=== PATIENT | male | born 1955 | race Caucasian/White ===

== ENCOUNTER 2019-05-09 13:52 | Emergency (ER) | payer BC ==
[2019-05-09 14:51] LABS: #Basophils 0.1 thou/uL (0.0-0.2); #Eosinphils 0.1 thou/uL (0.0-0.7); #Lymphocytes 2.2 thou/uL (1.20-3.40); #Monocytes 0.4 thou/uL (0.11-0.59); #Neutrophils 5.3 thou/uL (1.40-6.50); %Basophils 1.1 % (0.0-1.0); %Eosinophils 0.9 % (0.0-10.0); %Lymphocytes 27.3 % (21.0-51.0); %Monocytes 4.7 % (0.0-10.0); Hemoglobin 13.7 g/dL (14.0-18.0); Mean Corpuscular HGB CONC 33.9 g/dL (32.0-36.0); Mean Corpuscular Hemoglobin 32.1 pg (27.0-31.0); Mean Corpuscular Volume 94.5 fL (78.0-98.0); Mean Platelet Volume 7.2 fL (7.4-10.4); Platelet Count 210 thou/uL (130-400); RBC Distribution Width 11.9 % (11.5-14.5); Red Blood Cell (RBC) Count 4.27 mill/uL (4.70-6.10)
[2019-05-09 15:14] LABS: Anion Gap 11 mmol/L (10-20); BUN (Urea Nitrogen) 17 mg/dL (8.4-25.7); Calc. Creatinine Clearance 0 mL/min (70-130); Calcium 9.8 mg/dL (7.8-10.44); Carbon Dioxide 27 mmol/L (23-31); Chloride 104 mmol/L (98-107); Estimated GFR-MDRD 55; Glucose 81 mg/dL (80-115); Potassium 4.1 mmol/L (3.5-5.1); Sodium 138 mmol/L (136-145)
== END 2019-05-09 15:50 | disposition home or self-care (01) ==
LOC: ERS 13:52
DX: G47.9 Sleep disorder, unspecified (principal); T40.7X5A Adverse effect of cannabis (derivatives), initial encounter; E78.5 Hyperlipidemia, unspecified; I10 Essential (primary) hypertension; Z79.899 Other long term (current) drug therapy
CPT/HCPCS: 36415; 80048; 84484; 85025; 93005

== ENCOUNTER 2019-10-01 06:23 | Outpatient (CLI) | payer BC ==
[2019-10-01 11:04] LABS: PTT 31.2 SEC (22.9-36.1); Prothrombin Time 13.1 SEC (12.0-14.7)
[2019-10-01 11:10] LABS: Anion Gap 12 mmol/L (10-20); BUN (Urea Nitrogen) 17 mg/dL (8.4-25.7); Calc. Creatinine Clearance 0 mL/min (70-130); Carbon Dioxide 27 mmol/L (23-31); Chloride 104 mmol/L (98-107); Estimated GFR-MDRD 63; Glucose 78 mg/dL (80-115); Potassium 4.5 mmol/L (3.5-5.1); Sodium 138 mmol/L (136-145)
--- NOTE | 2019-10-01 17:32 | EKG ---
Test Reason : Blood Pressure : / mmHG Vent. Rate : 057 BPM Atrial Rate : 057 BPM P-R Int : 184 ms QRS Dur : 094 ms QT Int : 402 ms P-R-T Axes : 047 -01 052 degrees QTc Int : 391 ms Sinus bradycardia Early repolarization variant When compared with ECG of 09-MAY-2019 14:36, (Unconfirmed) QRS axis Shifted right Borderline criteria for Inferior infarct are now Present Confirmed by DR. Thomas GONZALEZ ([id number]) on 10/01/2019 5:31:33 PM Referred By: KHADAR Confirmed By:DR. Thomas GONZALEZ
== END 2019-10-01 06:24 | disposition home or self-care (01) ==
LOC: LABBT 06:23
PROVIDERS: ATTEND Urology
DX: Z01.818 Encounter for other preprocedural examination (principal); N40.1 Benign prostatic hyperplasia with lower urinary tract symptoms
CPT/HCPCS: 80048; 85610; 85730; 87086; 93005; 93010

== ENCOUNTER 2019-10-08 07:25 | Observation (INO) | payer BC ==
[2019-10-08 08:24] LABS: #Basophils 0.1 thou/uL (0.0-0.2); #Eosinphils 0.1 thou/uL (0.0-0.7); #Lymphocytes 2.4 thou/uL (1.20-3.40); #Monocytes 0.4 thou/uL (0.11-0.59); #Neutrophils 3.5 thou/uL (1.40-6.50); %Basophils 0.9 % (0.0-1.0); %Eosinophils 1.1 % (0.0-10.0); %Lymphocytes 37.5 % (21.0-51.0); %Monocytes 5.9 % (0.0-10.0); %Neutrophils 54.6 % (42.0-75.0); Hemoglobin 15.2 g/dL (14.0-18.0); Mean Corpuscular HGB CONC 34.3 g/dL (32.0-36.0); Mean Corpuscular Hemoglobin 32.2 pg (27.0-31.0); Mean Platelet Volume 7.6 fL (7.4-10.4); Platelet Count 200 thou/uL (130-400); RBC Distribution Width 11.6 % (11.5-14.5); Red Blood Cell (RBC) Count 4.72 mill/uL (4.70-6.10); White Blood Cell (WBC) Count 6.4 thou/uL (4.8-10.8)
[2019-10-08] MEDS ORDERED: Levofloxacin 500 mg/D5W 100 ml Premix Bag ONE (08:45)
[2019-10-08 09:16] LABS: Bacteria/HPF None Seen HPF (None Seen); Bilirubin Negative (Negative); Blood, Urine Negative (Negative); Clarity Clear (Clear); Glucose, Urine (Dipstick) Normal (Negative); Leukocyte Negative Leu/uL (Negative); Nitrite Negative (Negative); Protein, Urine (Dipstick) Negative (Neg-Trace); RBC/HPF 0-3 HPF (0-3); Squamous Epithelial None Seen HPF (0-3); Urobilinogen Normal mg/dL (Less than 2); WBC/HPF 0-3 HPF (0-3)
[2019-10-08] MEDS ORDERED: Fentanyl 100 MCG/2 ML VIAL ONE ×2 (10:20→12:14)
[2019-10-08] MEDS ORDERED: Iothalamate Meglumine 60% 50 ML VIAL FS ONE (10:21)
[2019-10-08] MEDS ORDERED: B & O ONE (10:21)
[2019-10-08] MEDS ORDERED: Promethazine HCl 25 MG/ML VIAL IM PRN (11:27)
[2019-10-08] MEDS ORDERED: Promethazine HCl 25 MG/ML VIAL SLOW IVP PRN (11:27)
[2019-10-08] MEDS ORDERED: Ondansetron HCl/PF 4 MG/2 ML Vial IVP PRN (11:27)
[2019-10-08] MEDS ORDERED: Phenazopyridine HCl 97.5 MG TABLET PO PRN (11:29)
[2019-10-08] MEDS ORDERED: diphenhydrAMINE 25 MG CAP PO PRN (11:29)
[2019-10-08] MEDS ORDERED: hydrALAZINE 20 MG/ML VIAL SLOW IVP PRN (11:29)
[2019-10-08] MEDS ORDERED: Hyoscyamine Sulfate SL 0.125 mg Tablet SL PRN (11:29)
[2019-10-08] MEDS ORDERED: Morphine 2 MG/ML SYRINGE SLOW IVP PRN (11:29)
[2019-10-08] MEDS ORDERED: Acetaminophen 500 MG TAB PO PRN (11:29)
[2019-10-08] MEDS ORDERED: Bisacodyl 10 MG SUPP PR PRN (11:29)
[2019-10-08] MEDS ORDERED: Mag-Al 1200 mg/1200 mg/30 ML UDCUP PO PRN (11:29)
[2019-10-08] MEDS ORDERED: traMADol HCl 50 MG TAB PO PRN (11:35)
[2019-10-08] MEDS ORDERED: ePHEDrine/0.9% NaCl/PF SYRINGE 50 mg/10 ml ONE (14:30)
[2019-10-08] MEDS ORDERED: Dexamethasone 20 MG/5 ML VIAL ONE (14:30)
[2019-10-08] MEDS ORDERED: Ondansetron PF 4 MG/2 ML Vial ONE (14:30)
[2019-10-08] MEDS ORDERED: Lidocaine 1% PF 5 ML VIAL ONE (14:30)
[2019-10-08] MEDS ORDERED: PROPOFOL 200 MG/20 ML VIAL ONE (14:30)
[2019-10-08] MEDS: Ondansetron PF 4 MG/2 ML Vial IVP PRN (14:34)
--- NOTE | 2019-10-08 15:32 | OP ---
DATE OF PROCEDURE: 10/08/2019 SERVICES: Urology. PREOPERATIVE DIAGNOSIS: BPH. POSTOPERATIVE DIAGNOSIS: BPH. PROCEDURE PERFORMED: Transurethral resection of the prostate. INDICATION FOR PROCEDURE: Mr. Mccracken is a 64-year-old white male with BPH and significant lower urinary symptoms including overactive bladder and weak stream. Cystoscopy demonstrated a large median lobe, which would not be very well amenable to UroLift. I discussed with him TURP instead, and after risks and benefits, he agreed to proceed forward. DESCRIPTION OF PROCEDURE: After identification of armband and verification of consent, the patient was brought back to the operating room, where he underwent general anesthesia with an LMA. He was then placed in dorsal lithotomy position and prepped and draped in usual sterile fashion. After appropriate time-out, a lubricated 26-Tunisian resectoscope sheath with visual obturator was passed through the urethra into the bladder. The visual obturator was switched out for the bipolar prostate resectoscope loop. Both ureters were identified far away from the bladder neck. Initial resection was carried down on the median lobe using the cutting current on the bipolar. Bladder neck relaxing incisions were also made at this time, and then, the lateral lobes were resected all the way back to the verumontanum. The prostate was then circumferentially resected from the bladder neck to the verumontanum until we were close to, but not through the capsule. Upon completion, the prostate was wide open. Meticulous hemostasis was performed, and then, the prostate chips were evacuated with the Ellik evacuator or manually with the resectoscope loop. Repeat hemostasis was then performed on the prostatic fossa. Both ureters were identified at the end of the case with no orthotopic location unharmed. All prostate chips were evacuated. The resectoscope loop was then removed and a 22-Tunisian three-way More catheter was placed into the bladder with 30 mL of sterile water into the balloon. CBI was initiated. B and O suppository was placed in his rectum. He was then awakened and taken to PACU for recovery in stable condition. COMPLICATIONS: None. ESTIMATED BLOOD LOSS: Minimal. RETAINED TUBES AND DRAINS: A 22-Tunisian three-way More catheter on CBI. SPECIMENS: Prostate chips for prostate analysis and pathology. DISPOSITION: The patient will be kept in the hospital overnight for CBI. We will plan a discharge in the morning after a void trial. Mike ID: [id number]
[2019-10-08 18:51] VITALS: BMI 24.0
[2019-10-08] MEDS: Docusate 100 MG CAP PO SCH (20:49)
[2019-10-08] MEDS ORDERED: Atorvastatin Calcium 20 MG TAB PO SCH (21:00)
[2019-10-09 04:41] LABS: #Lymphocytes 1.7 thou/uL (1.20-3.40); #Monocytes 0.6 thou/uL (0.11-0.59); #Neutrophils 7.7 thou/uL (1.40-6.50); %Basophils 0.1 % (0.0-1.0); %Eosinophils 0.1 % (0.0-10.0); %Lymphocytes 16.8 % (21.0-51.0); %Monocytes 5.6 % (0.0-10.0); %Neutrophils 77.4 % (42.0-75.0); Hemoglobin 13.8 g/dL (14.0-18.0); Mean Corpuscular HGB CONC 34.5 g/dL (32.0-36.0); Mean Corpuscular Hemoglobin 32.3 pg (27.0-31.0); Mean Corpuscular Volume 93.6 fL (78.0-98.0); Platelet Count 196 thou/uL (130-400); RBC Distribution Width 11.5 % (11.5-14.5); Red Blood Cell (RBC) Count 4.28 mill/uL (4.70-6.10); White Blood Cell (WBC) Count 9.9 thou/uL (4.8-10.8)
[2019-10-09 05:01] LABS: Anion Gap 9 mmol/L (10-20); BUN (Urea Nitrogen) 14 mg/dL (8.4-25.7); Calc. Creatinine Clearance 80 mL/min (70-130); Calcium 9.2 mg/dL (7.8-10.44); Carbon Dioxide 29 mmol/L (23-31); Chloride 101 mmol/L (98-107); Estimated GFR-MDRD 74; Glucose 127 mg/dL (80-115); Potassium 4.2 mmol/L (3.5-5.1); Sodium 135 mmol/L (136-145)
[2019-10-09] MEDS: Docusate 100 MG CAP PO SCH (08:33)
[2019-10-09] MEDS ORDERED: Oxybutynin ER 5 MG TAB PO SCH (09:00)
[2019-10-09] MEDS ORDERED: Prevnar 13-Val Conj/PF 0.5 ML SYRINGE IM ONE (09:00)
[2019-10-09] MEDS ORDERED: Lisinopril 20 MG TAB PO SCH (09:00)
[2019-10-09 11:26] VITALS: BP 163/87; TEMP 97.4
[2019-10-09] MEDS: Ondansetron PF 4 MG/2 ML Vial IVP PRN (12:00)
== END 2019-10-09 15:48 | disposition home or self-care (01) ==
LOC: SDC 07:25 → SURG A 11:33
PROVIDERS: ADMIT Urology; ATTEND Urology
PROC: 0VT08ZZ Resection of Prostate, Via Natural or Artificial Opening Endoscopic (ICD-10-PCS; principal; 2019-10-08)
DX: N40.1 Benign prostatic hyperplasia with lower urinary tract symptoms (principal); R39.12 Poor urinary stream; N32.81 Overactive bladder; N41.1 Chronic prostatitis; I10 Essential (primary) hypertension; E78.5 Hyperlipidemia, unspecified
CPT/HCPCS: 36415; 80048; 81001; 85025; 88305; 96365; 96366; 96375; 96376; G0378; J1100; J1956; J2001; J2405; J2704; J3010